=== PATIENT | male | born 1955 | race Caucasian/White ===

== ENCOUNTER 2022-08-02 18:30 | Day surgery (SDC) | payer BC, MEDICARE ==
[~2022-08-02] VITALS: Ht 172.7 cm; Wt 104.5 kg
[~2022-08-02 18:30] MED LIST: ASPI81CH33 PO; JANU100T; LISI10TA24; ROSU20TA5; TOBRADEX OPHTH SUSP 2.5 ML As Ordered ONE
[2022-08-02] MEDS ORDERED: TOBRADEX OPHTH SUSP 2.5 ML As Ordered ONE (18:36)
[2022-08-02] MEDS ORDERED: fentaNYL 100 MCG/2 ML INJECTION As Ordered ONE (18:44)
[2022-08-02] MEDS ORDERED: MIDAZOLAM INJ 2MG/2ML VIAL (J2250 PER 1MG) As Ordered ONE (18:44)
[2022-08-02] MEDS ORDERED: PROPARACAINE 0.5% OPHTH SOL 15ML As Ordered ONE (18:46)
[2022-08-02] MEDS ORDERED: fentaNYL 100 MCG/2 ML INJECTION IV PRN (19:20)
[2022-08-02] MEDS ORDERED: ONDANSETRON 4MG 2ML VIAL IV PRN (19:20)
[2022-08-02] MEDS ORDERED: LR 1,000 ML IV SCH (19:20)
[2022-08-02] MEDS ORDERED: oxyCODONE 5MG TAB PO PRN (19:20)
[2022-08-02 19:40] VITALS: BP 174/84
== END 2022-08-02 19:40 | disposition home or self-care (01) ==
LOC: M SDC 18:30
PROVIDERS: ATTEND Ophthalmology
DX: S05.8X2A Other injuries of left eye and orbit, initial encounter (principal); X58.XXXA Exposure to other specified factors, initial encounter; I10 Essential (primary) hypertension; R01.1 Cardiac murmur, unspecified; E78.5 Hyperlipidemia, unspecified; E11.9 Type 2 diabetes mellitus without complications; Z79.899 Other long term (current) drug therapy; Z79.82 Long term (current) use of aspirin; Z79.84 Long term (current) use of oral hypoglycemic drugs
CPT/HCPCS: 66250; 87635; J2250; J3010